=== PATIENT | female | born 1960 ===

== ENCOUNTER 2021-05-03 11:08 | Outpatient (CLI) | payer BC ==
[2021-05-04 11:19] LABS: SARS-CoV-2 PCR by NAA Not Detected (NotDetected)
== END 2021-05-03 11:09 | disposition home or self-care (01) ==
LOC: CSHLAB 11:08
PROVIDERS: ATTEND Internal Medicine Gastroenterology
DX: Z20.822 Contact with and (suspected) exposure to COVID-19 (principal)
CPT/HCPCS: U0003; U0005

== ENCOUNTER 2021-05-08 05:57 | Day surgery (SDC) | payer BC ==
[2021-05-02 14:40] VITALS: BMI 32.5
[2021-05-08] MEDS ORDERED: Lidocaine 1% MPF 2 ML VIAL ONE (06:36)
[2021-05-08] MEDS ORDERED: Lidocaine 2% PF 100 mg/5 ml Syringe ONE (06:38)
[2021-05-08] MEDS ORDERED: PROPOFOL 40 ML ONE (06:38)
[2021-05-08] MEDS ORDERED: Lidocaine 1% PF 5 ML VIAL ONE (06:38)
[2021-05-08] MEDS ORDERED: Labetalol HCl 100 MG/20 ML VIAL ONE (08:02)
== END 2021-05-08 08:50 | disposition home or self-care (01) ==
LOC: CSHSDC 05:57
PROVIDERS: ATTEND Internal Medicine Gastroenterology
PROC: 0DBN8ZZ Excision of Sigmoid Colon, Via Natural or Artificial Opening Endoscopic (ICD-10-PCS; principal; 2021-05-08)
DX: Z12.11 Encounter for screening for malignant neoplasm of colon (principal); K63.5 Polyp of colon; K57.30 Diverticulosis of large intestine without perforation or abscess without bleeding; K64.9 Unspecified hemorrhoids; K62.89 Other specified diseases of anus and rectum
CPT/HCPCS: 88305; J2001; J2704